=== PATIENT | female | born 1970 | race African-American/Black ===

== ENCOUNTER 2025-05-25 12:25 | Emergency (ER) | payer BC ==
[~2025-05-25] VITALS: Ht 167.6 cm; Wt 89.5 kg
[2025-05-25 12:30] VITALS: PULSE 84; RESP 18; TEMP 98.5; O2SAT 98
[2025-05-25] MEDS ORDERED: MECLIZINE HCL12.5 MG PO (12:45)
[2025-05-25] MEDS: MECLIZINE HCL 12.5 MG TAB PO ONE (12:48)
== END 2025-05-25 12:57 | disposition home or self-care (01) ==
LOC: FSED 12:30
DX: R42 Dizziness and giddiness (principal); I10 Essential (primary) hypertension; E11.9 Type 2 diabetes mellitus without complications; E78.5 Hyperlipidemia, unspecified; K21.9 Gastro-esophageal reflux disease without esophagitis; Z87.42 Personal history of other diseases of the female genital tract
CPT/HCPCS: 99284; J8597